=== PATIENT | male | born 1985 | race Caucasian/White ===

== ENCOUNTER 2019-01-30 08:39 | Emergency (ER) | payer BC, OTHER ==
[2019-01-30] MEDS ORDERED: NS 1,000 ML IV ONE (09:16)
--- NOTE | 2019-01-30 09:37 | EDPHY ---
HPI/HX/ROS/PE/MDM Narrative: CHIEF COMPLAINT: Chest pain HPI: The patient is a 33-year-old male with no significant past medical history and no known cardiac history. He complains of left-sided mid axillary chest pain that began approximately 1 week ago. He states the pain is intermittent and not associated with any specific factors. The patient states that he was doing quite a lot of pull-ups prior to the onset of pain and is now on 800 calorie a day fast. He denies pain with inspiration. He states he does have some pain in his left biceps and forearm. He initially presented to urgent care who sent to the ER because his blood pressure was elevated. REVIEW OF SYSTEMS: Aside from elements discussed in the HPI, a comprehensive 10-point review of systems was reviewed and is negative. PMH: None significant. SOCIAL HISTORY: Denies alcohol or drug abuse. PHYSICAL EXAM: General:Patient is alert, in no acute distress. ENT:Eyes are normal to inspection. ENT inspection normal. Neck: Normal inspection. Full range of motion. Respiratory:No respiratory distress. Breath sounds normal bilaterally. Cardiovascular: Regular rate and rhythm. Strong peripheral pulses. Normal cap refill. Abdomen:The abdomen is nontender to palpation. There are no peritoneal signs. There are normal bowel sounds. Back: Normal to inspection. No tenderness to palpation. Skin: Normal color. No rash. Warm and dry. Extremities: Normal appearance. Full range of motion. Neuro: Oriented x3. Normal motor function. Normal sensory function. MDM: This is a young healthy, very active male who presents with atypical chest, abdominal and left arm pain. We performed an extensive workup which is negative. His heart score is 0. I discussed options with him and he is comfortable with the plan of following up as an outpatient. He understands we are unable to fully exclude cardiac disease here in the emergency department. On re-evaluation, he is completely asymptomatic. - Data Points Imaging Results: Imaging Impressions Chest X-Ray 01/30/19 09:16 Impression: Possible airways disease. Otherwise negative. Laboratory Results: Laboratory Results 01/30/19 09:40 01/30/19 09:40 01/30/19 01/30/19 01/30/19 09:43 09:40 09:40 WBC 5.27 10^3/uL 10^3/uL (3.80-9.50) RBC 5.39 10^6/uL 10^6/uL (4.40-6.38) Hgb 17.1 g/dL g/dL (13.7-17.5) Hct 48.9 % % (40.0-51.0) MCV 90.7 fL fL (81.5-99.8) MCH 31.7 pg pg (27.9-34.1) MCHC 35.0 g/dL g/dL (32.4-36.7) RDW 12.0 % % (11.5-15.2) Plt Count 189 10^3/uL 10^3/uL (150-400) MPV 10.4 fL fL (8.7-11.7) Neut % (Auto) 63.9 % % (39.3-74.2) Lymph % (Auto) 24.9 % % (15.0-45.0) [place] % (Auto) 8.5 % % (4.5-13.0) Eos % (Auto) 1.9 % % (0.6-7.6) Baso % (Auto) 0.6 % % (0.3-1.7) Nucleat RBC Rel Count 0.0 % % (0.0-0.2) Absolute Neuts (auto) 3.37 10^3/uL 10^3/uL (1.70-6.50) Absolute Lymphs (auto) 1.31 10^3/uL 10^3/uL (1.00-3.00) Absolute Monos (auto) 0.45 10^3/uL 10^3/uL (0.30-0.80) Absolute Eos (auto) 0.10 10^3/uL 10^3/uL (0.03-0.40) Absolute Basos (auto) 0.03 10^3/uL 10^3/uL (0.02-0.10) Absolute Nucleated RBC 0.00 10^3/uL 10^3/uL (0-0.01) Immature Gran % 0.2 % % (0.0-1.1) Immature Gran # 0.01 10^3/uL 10^3/uL (0.00-0.10) Sodium 140 mEq/L mEq/L (135-145) Potassium 4.0 mEq/L mEq/L (3.5-5.2) Chloride 101 mEq/L mEq/L (97-110) Carbon Dioxide 26 mEq/l mEq/l (22-31) Anion Gap 13 mEq/L mEq/L (6-14) BUN 11 mg/dL mg/dL (7-23) Creatinine 1.0 mg/dL mg/dL (0.7-1.3) Estimated GFR > 60 Glucose 99 mg/dL mg/dL (70-100) Calcium 9.9 mg/dL mg/dL (8.5-10.4) POC Troponin I 0.00 ng/mL ng/mL (0.00-0.08) Lipase 82 IU/L IU/L (23-300) Medications Given: Discontinued Medications Sodium Chloride (Ns) 1,000 mls @ 0 mls/hr IV EDNOW ONE; Wide Open PRN Reason: Protocol Stop: 01/30/19 09:17 Last Admin: 01/30/19 09:43 Dose: 1,000 mls Point of Care Test Results: Chemistry 01/30/19 09:43 POC Troponin I 0.00 ng/mL ng/mL (0.00-0.08) General Time Seen by Provider: 01/30/19 08:57 Initial Vital Signs: Initial Vital Signs Temperature (C) 36.5 C 01/30/19 08:51 Heart Rate 87 01/30/19 08:51 Respiratory Rate 18 01/30/19 08:51 Blood Pressure 145/90 H 01/30/19 08:51 O2 Sat (%) 97 01/30/19 08:51 O2 Delivery Mode Room Air Allergies/Adverse Reactions: No Known Allergies Allergy (Unverified 01/30/19 08:50) Home Medications: Medication Instructions Recorded NK [No Known Home Meds] 01/30/19 Departure - Departure Disposition: Home, Routine, Self-Care Clinical Impression: Chest pain Condition: Good Instructions: Chest Pain (ED) Additional Instructions: Follow-up with your primary doctor within 72 hours. Return to the Emergency Department for fever, chest pain, shortness of breath, increasing pain or other worsening of condition. Follow up with a production service manager and/or a construction project administrator for further testing, as soon as possible, within one week. Referrals: NONE *PRIMARY CARE P,. [Primary Care Provider] - As per Instructions Manuel Jacob MD [Medical Doctor] - As per Instructions Jorge Xaio MD [Medical Doctor] - As per Instructions
[2019-01-30 10:02] LABS: PLATELET COUNT 189 10^3/uL (150-400)
[2019-01-30 10:39] VITALS: BP 147/79
--- NOTE | 2019-01-30 14:48 | CPEKG ---
Test Reason : OPEN Blood Pressure : / mmHG Vent. Rate : 072 BPM Atrial Rate : 076 BPM P-R Int : 143 ms QRS Dur : 110 ms QT Int : 401 ms P-R-T Axes : 076 099 060 degrees QTc Int : 439 ms Sinus arrhythmia Borderline right axis deviation Confirmed by Roger Zelaya ([id number] on 01/30/2019 2:48:21 PM Referred By: Roger Zelaya Confirmed By:Roger Zelaya
== END 2019-01-30 11:25 | disposition home or self-care (01) ==
DX: R07.9 Chest pain, unspecified (principal); E86.9 Volume depletion, unspecified
CPT/HCPCS: 84484-ER